=== PATIENT | male | born 1965 | race Caucasian/White ===

== ENCOUNTER 2018-12-08 19:15 | Emergency (ER) | payer BC ==
[2018-12-08] MEDS ORDERED: Sodium Chloride 0.9% 1,000 ML IV ONE (19:50)
[2018-12-08] MEDS ORDERED: Ondansetron 4 MG/2 ML SDV IVPUSH ONE (19:50)
[2018-12-08] MEDS ORDERED: Sodium Chloride 0.9% 10 ML Syringe FLUSH PRN (19:50)
[2018-12-08] MEDS ORDERED: Morphine 2 MG/ML Syringe IVPUSH ONE (19:50)
[2018-12-08] MEDS ORDERED: Ketorolac 30 MG/ML SDV IVPUSH ONE (19:50)
[2018-12-08] MEDS ORDERED: Sodium Chloride 0.9% 2.5 ML Syringe FLUSH PRN (19:50)
--- NOTE | 2018-12-08 19:53 | EDM.PDOC ---
ED HPI GENERAL MEDICAL PROBLEM - General Chief Complaint: Genitourinary Problem Stated Complaint: PT HAS KIDNEY STONES Time Seen by Provider: 12/08/18 19:43 - History of Present Illness INITIAL COMMENTS - FREE TEXT/NARRATIVE: HISTORY AND PHYSICAL: History of present illness: The patient is a 53-year-old male with a history of kidney stones in the past she says are usually on the right side and he has 4 stones that he is aware of one of which had to be removed in surgery but the other 3 of which he passed spontaneously and to presents today with sudden onset of right flank pain several hours ago. he says that he has had a cough and cold symptoms for the last 1 week and has been taking cough medicine and lozenges and was actually having a good day without fevers chills abdominal issues when he started suddenly. is no hematuria dysuria or frequency and says it is in the right flank and radiates around to his right abdomen. he has no testicular pain or swelling no history of trauma and has been eating and drinking normally. he says this feels like a kidney stone with respect to pain but he did not take anything specifically for pain at home prior to coming here. He has never followed up with our local urologist and has always had the prior kidney stone events in other [place]. He has no midline back pain and no other abdominal complaints other than some nausea and one small episode of vomiting on arrival here but no diarrhea. Review of systems: As per history of present illness and below otherwise all systems reviewed and negative. Past medical history: As per history of present illness and as reviewed below otherwise noncontributory. Surgical history: As per history of present illness and as reviewed below otherwise noncontributory. Social history: No reported history of drug or alcohol abuse. Family history: As per history of present illness and as reviewed below otherwise noncontributory. Physical exam: General: Well-developed well-nourished overweight man who is nontoxic and vital signs were noted by me. He moves easily in the ED without distress HEENT: Atraumatic, normocephalic, pupils reactive, negative for conjunctival pallor or scleral icterus, mucous membranes moist, throat clear, neck supple, nontender, trachea midline. Lungs: Clear to auscultation, breath sounds equal bilaterally, chest nontender. Heart: S1S2, regular rate and rhythm no overt murmurs Abdomen: Soft, nondistended, minimal tenderness at the right lower quadrant which does not reproduce the pain and there is no rebound and guarding and no specific right flank tenderness with palpation.. Negative for masses or hepatosplenomegaly. Negative for costovertebral tenderness. Pelvis: Stable nontender. Genitourinary: Deferred. Rectal: Deferred. Extremities: Atraumatic, negative for cords or calf pain. Neurovascular unremarkable. Neuro: Awake, alert, oriented. Cranial nerves II through XII unremarkable. Cerebellum unremarkable. Motor and sensory unremarkable throughout. Exam nonfocal. Diagnostics: UA with micro-urine culture CBC CMP CT scan of the abdomen and pelvis Therapeutics: IV fluids Toradol Zofran morphine The patient is aware of all testing results and that there are no kidney stones and the appendix is normal but there is abundant stool in colon. I've advised him to increase fiber and water in his diet take a stool softener and/or some MiraLAX and to follow-up in the clinic Impression: Right abdominal pain, constipation Definitive disposition and diagnosis as appropriate pending reevaluation and review of above. Right Flank Pain Score (Numeric/FACES): 7 - Related Data Allergies Allergy/AdvReac Type Severity Reaction Status Date / Time Penicillins Allergy Anaphylactic Verified 12/08/18 19:37 Shock Home Meds: Home Meds Fenofibrate 54 mg PO DAILY 12/08/18 [History] Lisinopril/Hydrochlorothiazide [Lisinopril-Hctz 20-12.5 mg Tab] 1 each PO DAILY 12/08/18 [History] Rosuvastatin [Crestor] 10 mg PO DAILY 12/08/18 [History] predniSONE [Prednisone] mg PO DAILY 12/08/18 [History] Past Medical History Cardiovascular History: Reports: Hypertension Genitourinary History: Reports: Other (See Below) Other Genitourinary History: kidney stones - Infectious Disease History Infectious Disease History: Reports: Chicken Pox, Measles - Past Surgical History HEENT Surgical History: Reports: Adenoidectomy, Tonsillectomy Male Surgical History: Reports: Kidney Stone Extraction Dermatological Surgical History: Reports: Other (See Below) Social & Family History - Family History Family Medical History: Noncontributory - Tobacco Use Smoking Status *Q: Never Smoker - Caffeine Use Caffeine Use: Reports: Coffee - Recreational Drug Use Recreational Drug Use: No ED ROS GENERAL - Review of Systems Review Of Systems: ROS reveals no pertinent complaints other than HPI. ED EXAM, GENERAL - Physical Exam Exam: See Below (See dictation) Course - Vital Signs Last Recorded V/S: Last Vital Signs Temp 36.3 C 12/08/18 20:48 Pulse 81 12/08/18 20:48 Resp 16 12/08/18 20:48 BP 141/77 H 12/08/18 20:48 Pulse Ox 95 12/08/18 19:40 - Orders/Labs/Meds Orders: Active Orders 24 hr Category Date Time Status CULTURE URINE [RM] Stat Lab 12/08/18 19:55 Received Sodium Chloride 0.9% [Saline Flush] Med 12/08/18 19:50 Active 10 ml FLUSH ASDIRECTED PRN Sodium Chloride 0.9% [Saline Flush] Med 12/08/18 19:50 Active 2.5 ml FLUSH ASDIRECTED PRN Saline Lock Insert [OM.PC] Stat Oth 12/08/18 19:49 Ordered Medication Orders Sodium Chloride (Saline Flush) 10 ml FLUSH ASDIRECTED PRN PRN Reason: Keep Vein Open Last Admin: 12/08/18 20:09 Dose: 10 ml Sodium Chloride (Saline Flush) 2.5 ml FLUSH ASDIRECTED PRN PRN Reason: Keep Vein Open Last Admin: 12/08/18 20:09 Dose: 2.5 ml Labs: Laboratory Tests 12/08/18 12/08/18 12/08/18 Range/Units 19:55 19:55 19:55 WBC 9.85 (4.0-11.0) K/uL RBC 5.11 (4.50-5.90) M/uL Hgb 15.8 (13.0-17.0) g/dL Hct 45.4 (38.0-50.0) % MCV 88.8 (80.0-98.0) fL MCH 30.9 (27.0-32.0) pg MCHC 34.8 (31.0-37.0) g/dL RDW Std Deviation 43.4 (28.0-62.0) fl RDW Coeff of Jocelynn 13 (11.0-15.0) % Plt Count 291 (150-400) K/uL MPV 8.60 (7.40-12.00) fL Neut % (Auto) 64.9 (48.0-80.0) % Lymph % (Auto) 26.2 (16.0-40.0) % [place] % (Auto) 7.9 (0.0-15.0) % Eos % (Auto) 0.7 (0.0-7.0) % Baso % (Auto) 0.3 (0.0-1.5) % Neut # (Auto) 6.4 H (1.4-5.7) K/uL Lymph # (Auto) 2.6 H (0.6-2.4) K/uL [place] # (Auto) 0.8 (0.0-0.8) K/uL Eos # (Auto) 0.1 (0.0-0.7) K/uL Baso # (Auto) 0.0 (0.0-0.1) K/uL Nucleated RBC % 0.0 /100WBC Nucleated RBCs # 0 K/uL Sodium 142 (136-148) mmol/L Potassium 4.0 (3.5-5.1) mmol/L Chloride 105 (98-107) mmol/L Carbon Dioxide 26.8 (21.0-32.0) mmol/L BUN 22 H (7.0-18.0) mg/dL Creatinine 1.2 (0.8-1.3) mg/dL Est Cr Clr Drug Dosing 70.37 mL/min Estimated GFR (MDRD) > 60.0 ml/min Glucose 112 H (74-106) mg/dL Calcium 10.0 (8.5-10.1) mg/dL Total Bilirubin 0.4 (0.2-1.0) mg/dL AST 21 (15-37) IU/L ALT 35 (14-63) IU/L Alkaline Phosphatase 84 (46-116) U/L Total Protein 7.0 (6.4-8.2) g/dL Albumin 3.8 (3.4-5.0) g/dL Globulin 3.2 (2.6-4.0) g/dL Albumin/Globulin Ratio 1.2 (0.9-1.6) Urine Color YELLOW Urine Appearance CLEAR Urine pH 6.0 (5.0-8.0) Ur Specific [place] 1.025 (1.001-1.035) Urine Protein NEGATIVE (NEGATIVE) mg/dL Urine Glucose (UA) NEGATIVE (NEGATIVE) mg/dL Urine Ketones NEGATIVE (NEGATIVE) mg/dL Urine Occult Blood NEGATIVE (NEGATIVE) Urine Nitrite NEGATIVE (NEGATIVE) Urine Bilirubin NEGATIVE (NEGATIVE) Urine Urobilinogen 0.2 (<2.0) EU/dL Ur Leukocyte Esterase NEGATIVE (NEGATIVE) Urine RBC 0-1 (0-2/HPF) Urine WBC 0-1 (0-5/HPF) Ur Epithelial Cells NOT SEEN (NONE-FEW) Urine Bacteria RARE (NEGATIVE) Meds: Medications Generic Name Dose Route Start Last Admin Trade Name Freq PRN Reason Stop Dose Admin Sodium Chloride 10 ml 12/08/18 19:50 12/08/18 20:09 Saline Flush FLUSH 10 ml ASDIRECTED PRN Administration Keep Vein Open Sodium Chloride 2.5 ml 12/08/18 19:50 12/08/18 20:09 Saline Flush FLUSH 2.5 ml ASDIRECTED PRN Administration Keep Vein Open Discontinued Medications Generic Name Dose Route Start Last Admin Trade Name Freq PRN Reason Stop Dose Admin Sodium Chloride 1,000 mls @ 999 mls/hr 12/08/18 19:50 12/08/18 20:05 Normal Saline IV 12/08/18 20:50 999 mls/hr STAT ONE Administration Ketorolac Tromethamine 30 mg 12/08/18 19:50 12/08/18 20:08 Toradol IVPUSH 12/08/18 19:51 30 mg ONETIME ONE Administration Morphine Sulfate 4 mg 12/08/18 19:50 12/08/18 20:05 Morphine IVPUSH 12/08/18 19:51 Not Given ONETIME ONE Ondansetron HCl 4 mg 12/08/18 19:50 12/08/18 20:09 Zofran IVPUSH 12/08/18 19:51 Not Given ONETIME ONE Departure - Departure Time of Disposition: 21:08 Disposition: Home, Self-Care 01 Condition: Good Clinical Impression: Abdominal pain Qualifiers: Abdominal location: unspecified location Qualified Code(s): R10.9 - Unspecified abdominal pain - Discharge Information Referrals: Hipolito Dow MD [Primary Care Provider] - Forms: ED Department Discharge Additional Instructions: The following information is given to patients seen in the emergency department who are being discharged to home. This information is to outline your options for follow-up care. We provide all patients seen in our emergency department with a follow-up referral. The need for follow-up, as well as the timing and circumstances, are variable depending upon the specifics of your emergency department visit. If you don't have a primary care physician on staff, we will provide you with a referral. We always advise you to contact your personal physician following an emergency department visit to inform them of the circumstance of the visit and for follow-up with them and/or the need for any referrals to a consulting specialist. The emergency department will also refer you to a specialist when appropriate. This referral assures that you have the opportunity for followup care with a specialist. All of these measure are taken in an effort to provide you with optimal care, which includes your followup. Under all circumstances we always encourage you to contact your private physician who remains a resource for coordinating your care. When calling for followup care, please make the office aware that this follow-up is from your recent emergency room visit. If for any reason you are refused follow-up, please contact the [facility] emergency department at and ask to speak to the emergency department charge nurse. [facility] Primary care- [place] [address] Push hydration such as water juices and Gatorade and avoid caffeinated products and increase fiber in her diet. Use an [id number] stool softener such as Colace to help move the stool along and you may also use [id number] MiraLAX for the next few days to get the colon cleansed gently. Please call and schedule follow-up appointment with your provider or one of ours For further care and reevaluation and return to ER as needed as discussed - My Orders Last 24 Hours: My Active Orders 12/08/18 19:49 Saline Lock Insert [OM.PC] Stat 12/08/18 19:50 Sodium Chloride 0.9% [Saline Flush] 10 ml FLUSH ASDIRECTED PRN Sodium Chloride 0.9% [Saline Flush] 2.5 ml FLUSH ASDIRECTED PRN 12/08/18 19:55 CULTURE URINE [RM] Stat - Assessment/Plan Last 24 Hours: My Active Orders 12/08/18 19:49 Saline Lock Insert [OM.PC] Stat 12/08/18 19:50 Sodium Chloride 0.9% [Saline Flush] 10 ml FLUSH ASDIRECTED PRN Sodium Chloride 0.9% [Saline Flush] 2.5 ml FLUSH ASDIRECTED PRN 12/08/18 19:55 CULTURE URINE [RM] Stat
[2018-12-08 20:32] LABS: BLOOD UREA NITROGEN,BUN 22 mg/dL (7.0-18.0); CARBON DIOXIDE,CO2 26.8 mmol/L (21.0-32.0); CHLORIDE,CL 105 mmol/L (98-107); GLUCOSE RANDOM 112 mg/dL (74-106); SODIUM,NA 142 mmol/L (136-148)
--- NOTE | 2018-12-08 21:04 | CT ---
Abdominal pain technique Technique: Noncontrast CT abdomen and pelvis coronal and sagittal re-formatted images obtained. COMPARISON: No compares studies are available. FINDINGS: The heart size is normal. The lung bases are clear. There is no effusion. No pericardial effusion. Two small to characterize low-density lesion in the right hepatic lobe. No biliary dilatation. There is unremarkable. Gallbladder pancreas adrenal glands, spleen appears unremarkable. No abdominal aortic aneurysm. Normal appendix. Kidneys are unremarkable. No hydronephrosis. Urinary bladder is decompressed and unremarkable. Prostate gland is slightly prominent. There is diverticulosis. Abundant stool in the colon. No bowel obstruction. No inflammatory change. No suspicious bony lesions are seen. IMPRESSION: 1. No acute findings in the abdomen or pelvis. 2. Mild diverticulosis. 3. Slight prominence of the prostate gland . Please note that all CT scans at this facility use dose modulation, iterative reconstruction, and/or weight-based dosing when appropriate to reduce radiation dose to as low as reasonably achievable. Dictated by Liss Corral MD @ Dec 08 2018 8:56PM Signed by Dr. Liss Corral @ Dec 08 2018 9:02PM
== END 2018-12-08 21:24 | disposition home or self-care (01) ==
LOC: MW.ED 19:15
DX: K59.00 Constipation, unspecified (principal); I10 Essential (primary) hypertension; Z88.0 Allergy status to penicillin; Z98.890 Other specified postprocedural states
CPT/HCPCS: 36415; 74176; 80053; 81001; 85025; 87086; 96361; 96374; 99284; J1885; J7040